=== PATIENT | female | born 1970 | race African-American/Black ===

== ENCOUNTER 2017-07-27 14:23 | Outpatient (CLI) | payer OTHER ==
[2017-07-28 10:29] LABS: IMMUNOGLOBULIN A 168 mg/dL (87-352)
[2017-08-01 10:25] LABS: GLIADIN IGG AB 2 units (0-19)
== END 2017-07-27 14:40 | disposition home or self-care (01) ==
LOC: PAN 14:23
DX: R10.9 Unspecified abdominal pain (principal); R19.7 Diarrhea, unspecified
CPT/HCPCS: 36415; 82784; 83516; 83520; 86255